=== PATIENT | female | born 1980 | race Caucasian/White ===

== ENCOUNTER 2018-04-06 14:20 | Emergency (ER) | payer BC ==
[2018-04-06 14:56] LABS: ABS Basophils 0.1 10^3/ul (0-0.2); ABS Eosinophils 0.3 10^3/ul (0-0.6); ABS Lymphocytes 2.2 10^3/ul (1.0-4.8); ABS Monocytes 0.5 10^3/ul (0-0.8); ABS Neutrophils 5.4 10^3/ul (1.5-7.7); ABS Nucleated RBC 0 10^3/ul; Eosinophil % 3.4 % (0-6); Hematocrit 38 % (35-47); Hemoglobin 12.9 g/dl (12.0-16.0); Lymphocyte % 25.8 % (25-47); Mean Corpuscular HGB Conc 34 g/dl (31-36); Mean Corpuscular Hemoglobin 30 pg (27-31); Mean Corpuscular Volume 88 fL (80-97); Nucleated Red Blood Cells % 0; Platelet Count 241 10^3/ul (150-450); Red Blood Count 4.33 10^6/ul (4.0-5.4); Red Cell Distribution Width 13 % (10.5-15); White Blood Count 8.5 10^3/ul (3.5-10.8)
[2018-04-06 15:19] LABS: EGFR Non-African American 86.6 (>60)
--- NOTE | 2018-04-06 15:43 | RAD ---
Indication: Chest pain and pressure. 2 views of the chest including dual energy PA views demonstrates no mediastinal shift. Heart is of normal size and configuration. Lung chapa appear clear. IMPRESSION: No active cardiopulmonary disease is noted.
[2018-04-06 18:54] VITALS: BP 128/79
--- NOTE | 2018-04-09 19:01 | ED ---
Jazz Kaur Gabriel scribed for Lorenzo Gan MD on 04/06/18 at 1430 . 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 At 1230 it became painful, at this point she contacted PCP and was told to come here. The patient rates the pain 6/10 in severity. Symptoms alleviated by nothing. She states the pressure in her chest has resolved. Patient reports nausea, SOB, and dizziness. Patient denies v/d and ABD pain. LNMP was 2 weeks ago and denies chance of . - History of Current Complaint Hx Obtained From: Patient Onset/Duration: Still Present Time of Onset: 12:00 Timing: Constant Initial Severity: Moderate Current Severity: Moderate Pain Intensity: 5 Pain Scale Used: 0-10 Numeric Chest Pain Location: Diffuse Chest Pain Radiates: No Character: Pressure/Squeezing Aggravating Factor(s): Nothing Associated Signs and Symptoms: Positive: Other: - nausea, SOB, and dizziness. - Allergy/Home Medications Home Medications: Home Medications Bupropion XL* [Wellbutrin XL *] 150 mg PO DAILY 04/06/18 [History Confirmed 09/14] Cetirizine* [ZyrTEC 10 MG TAB*] 10 mg PO DAILY 04/06/18 [History Confirmed 04/06] Cholecalciferol TAB* [Vitamin D TAB*] 4,000 units PO DAILY 04/06/18 [History Confirmed 04/06/18] Magnesium Oxide TAB* [MagOx 400 TAB*] 800 mg PO DAILY 04/06/18 [History Confirmed 04/06/18] Mometasone 220 MCG MDI * [Asmanex 220 MCG MDI *] 2 puff INH DAILY 04/06/18 [ History Confirmed 04/06/18] PMH/Surg Hx/FS Hx/Imm Hx Cardiovascular History: Denies: Hx Deep Vein Thrombosis Respiratory History: Reports: Hx Asthma, Hx Seasonal Allergies, Hx Sleep Apnea History: Denies: Hx Benign Prostatic Hyperplasia, Hx Chronic Renal Failure Musculoskeletal History: Denies: Hx Congenital Bone Abnormalities, Hx Fibromyalgia EENT History: Denies: Hx Hearing Aid Infectious Disease History: No Infectious Disease History: Denies: Traveled Outside the [place] in Last 30 Days - Social History Occupation: Employed Full-time Lives: With Family Alcohol Use: Rare Hx Substance Use: No Substance Use Type: Reports: None Hx Tobacco Use: No Smoking Status (MU): Never Smoked Tobacco Review of Systems Positive: Chest Pain Positive: Shortness Of Breath Positive: Nausea. Negative: Abdominal Pain, Vomiting, Diarrhea Neurological: Other - dizziness All Other Systems Reviewed And Are Negative: Yes Physical Exam Triage Information Reviewed: Yes Vital Signs On Initial Exam: Initial Vitals Temp Pulse Resp BP Pulse Ox 97.8 F 82 26 129/86 98 04/06/18 14:21 04/06/18 14:21 04/06/18 14:21 04/06/18 14:21 04/06/18 14:21 Vital Signs Reviewed: Yes Appearance: Positive: Well-Appearing, No Pain Distress, Well-Nourished Skin: Positive: Warm, Skin Color Reflects Adequate Perfusion, Dry Head/Face: Positive: Normal Head/Face Inspection Eyes: Positive: Normal, Conjunctiva Clear ENT: Positive: Normal ENT inspection, Pharynx normal Neck: Positive: Supple, Nontender, No Lymphadenopathy Respiratory/Lung Sounds: Positive: Clear to Auscultation, Breath Sounds Present. Negative: Decreased Breath Sounds, Rales, Wheezes Cardiovascular: Positive: Normal, RRR, Pulses are Symmetrical in both Upper and Lower Extremities Abdomen Description: Positive: Nontender, Soft Bowel Sounds: Positive: Present Musculoskeletal: Positive: Normal, Strength/ROM Intact Neurological: Positive: Normal, Sensory/Motor Intact, Alert, Oriented to Person Place, Time. Negative: Facial Droop Diagnostics - Vital Signs Vital Signs Temp Pulse Resp BP Pulse Ox 04/06/18 14:21 97.8 F 82 26 129/86 98 - Laboratory Lab Results: Lab Results 04/06/18 Range/Units 14:42 WBC 8.5 (3.5-10.8) 10^3/ul RBC 4.33 (4.0-5.4) 10^6/ul Hgb 12.9 (12.0-16.0) g/dl Hct 38 (35-47) % MCV 88 (80-97) fL MCH 30 (27-31) pg MCHC 34 (31-36) g/dl RDW 13 (10.5-15) % Plt Count 241 (150-450) 10^3/ul MPV 7.0 L (7.4-10.4) um3 Neut % (Auto) 63.3 (38-83) % Lymph % (Auto) 25.8 (25-47) % [place] % (Auto) 6.3 (0-7) % Eos % (Auto) 3.4 (0-6) % Baso % (Auto) 1.2 (0-2) % Absolute Neuts (auto) 5.4 (1.5-7.7) 10^3/ul Absolute Lymphs (auto) 2.2 (1.0-4.8) 10^3/ul Absolute Monos (auto) 0.5 (0-0.8) 10^3/ul Absolute Eos (auto) 0.3 (0-0.6) 10^3/ul Absolute Basos (auto) 0.1 (0-0.2) 10^3/ul Absolute Nucleated RBC 0 10^3/ul Nucleated RBC % 0 Result Diagrams: 04/06/18 14:42 04/06/18 14:42 Lab Statement: Any lab studies that have been ordered have been reviewed, and results considered in the medical decision making process. - Radiology CXR Radiology Interpretation Completed By: Radiologist - EKG No standard instances EKG Rhythm: Sinus Rhythm ST Segment: Normal Ectopy: None EKG Interpretation: Normal tracing Chest Pain Course/Dx - Diagnoses Provider Diagnoses: Atypical chest pain Discharge - Sign-Out/Discharge Documenting (check all that apply): Discharge/Admit/Transfer - Discharge Plan Condition: Good Disposition: HOME Patient Education Materials: Chest Pain (ED) Referrals: Esther Correa MD [Primary Care Provider] - - Billing Disposition and Condition Condition: GOOD Disposition: HOME The documentation as recorded by the Jazz salazar Gabriel accurately reflects the service I personally performed and the decisions made by , Lorenzo Gan MD.
== END 2018-04-06 18:52 | disposition home or self-care (01) ==
LOC: ED 14:20
DX: R07.89 Other chest pain (principal); R06.02 Shortness of breath; R11.0 Nausea; R42 Dizziness and giddiness; J45.909 Unspecified asthma, uncomplicated
CPT/HCPCS: 36415; 71046; 80053; 84484; 84702; 85025; 85379; 93005; 99282